=== PATIENT | female | born 1990 | race Caucasian/White ===

== ENCOUNTER 2024-03-20 03:57 | Emergency (ER) | payer SELFPAY ==
[~2024-03-20] VITALS: Ht 175.3 cm; Wt 63.5 kg
[2024-03-20] MEDS ORDERED: AMOX-430 PO (04:26)
[2024-03-20] MEDS ORDERED: AMOXICILLIN-CLAVUL 875-125MG TABLET ONE (04:34)
[2024-03-20] MEDS: AMOXICILLIN-CLAVUL 875-125MG TABLET PO ONE (04:37)
[2024-03-20 04:43] VITALS: BP 126/85; TEMP 97.7; O2SAT 100
== END 2024-03-20 04:44 | disposition home or self-care (01) ==
LOC: ER 04:01
DX: L03.114 Cellulitis of left upper limb (principal); Z79.899 Other long term (current) drug therapy; Z88.7 Allergy status to serum and vaccine; W54.0XXA Bitten by dog, initial encounter; Y93.89 Activity, other specified; Y92.89 Other specified places as the place of occurrence of the external cause; Y99.8 Other external cause status
CPT/HCPCS: A4606; A4663